=== PATIENT | male | born 2005 | race Caucasian/White ===

== ENCOUNTER 2025-06-19 15:55 | Emergency (ER) | payer SELFPAY ==
[2025-06-19] MEDS ORDERED: DIPHENHYDRAMINE 50 MG/ML VIAL ONE (16:39)
[2025-06-19] MEDS ORDERED: METHYLPREDNISOLONE 125 MG INJ ONE (16:39)
[2025-06-19] MEDS ORDERED: NA CHLORIDE 0.9% 1,000 ML ONE (16:40)
[2025-06-19] MEDS ORDERED: FAMOTIDINE 20 MG/2 ML VIAL IV ONE (16:40)
--- NOTE | 2025-06-19 17:34 | ER ---
Nurse's Notes [facility] Name: Selene Prajapati Age: 19 yrs Sex: Male : 2005 Arrival Date: 06/19/2025 Time: 15:55 Bed 14 Private MD: Diagnosis: Urticaria Presentation: 06/19 16:24 Chief complaint: Patient states: WOKE UP THIS MORNING WITH RED HIVES ON KYLEE ARMS, KYLEE dd2 LEGS, STOMACH. PT REPORTS ITCHING. Coronavirus screen: At this time, the client does not indicate any symptoms associated with coronavirus-19. Ebola Screen: No symptoms or risks identified at this time. Onset: The symptoms/episode began/occurred this morning. Anaphylaxis evaluation, no signs or symptoms of anaphylaxis were noted. Risk Assessment: Do you want to hurt yourself or someone else? Patient reports no desire to harm self or others. Onset of symptoms was June 18, 2025. 16:24 Method Of Arrival: Ambulatory dd2 16:24 Acuity: IFTIKHAR 3 dd2 16:26 Initial Sepsis Screen: Does the patient meet any 2 criteria? No. Patient's initial dd2 sepsis screen is negative. Does the patient have a suspected source of infection? No. Patient's initial sepsis screen is negative. Triage Assessment: 16:26 General: Appears in no apparent distress. uncomfortable, Behavior is calm, cooperative, dd2 appropriate for age. Pain: Complains of pain in throat. EENT: Throat is reddened Reports pain when swallowing. Derm: Rash noted that is itchy, red, raised, Reports itching. Historical: - Allergies: 16:26 Igo; dd2 - PMHx: 16:26 None; dd2 - PSHx: 16:26 None; dd2 - Immunization history:: Adult Immunizations unknown. - Infectious Disease History:: Denies. - Social history:: Smoking status: Reported history of juuling and/or vaping. Screenin:49 [facility] ED Fall Risk Assessment (Adult) History of falling in the last 3 months, km10 including since admission No falls in past 3 months (0 pts) Confusion or Disorientation No (0 pts) Intoxicated or Sedated No (0 pts) Impaired Gait No (0 pts) Mobility Assist Device Used No (0 pt) Altered Elimination No (0 pt) Score/Fall Risk Level 0 - 2 = Low Risk Oriented to surroundings, Maintained a safe environment. Abuse screen: Denies threats or abuse. Denies injuries from another. Nutritional screening: No deficits noted. Tuberculosis screening: No symptoms or risk factors identified. Assessment: 16:50 General: Appears in no apparent distress. Behavior is calm, cooperative. Pain: Denies km10 pain. Neuro: No deficits noted. Level of Consciousness is awake, alert, obeys commands, Oriented to person, place, time, situation, Appropriate for age Gait is steady. Respiratory: No deficits noted. Reports Airway is patent Respiratory effort is even, unlabored, Breath sounds are clear. Derm: Rash noted that is itchy, red, on right arm, left arm, right leg and left leg. Vital Signs: 16:26 BP 134 / 86; Pulse 114; Resp 16; Temp 98.6; Pulse Ox 99% on R/A; dd2 ED Course: 15:56 Patient arrived in ED. im 16:00 Syl Ramos PA-C is PHCP. sb4 16:00 Aleksandr Floyd DO is Attending Physician. sb4 16:00 Coty Harris FNP-C is PHCP. kb 16:26 Triage completed. dd2 16:29 Arm band placed on left wrist. dd2 16:30 Inserted saline lock: 22 gauge in right antecubital area, using aseptic technique. km10 Flushed with 10 mL NS. 16:30 No provider procedures requiring assistance completed. km10 16:31 Britney Dos Santos, RN is Primary Nurse. km10 Administered Medications: 16:46 Drug: NS 0.9% IV 1000 ml IV at 1000 ml once; to be given as a bolus over 60 minutes km10 Route: IV; Rate: 1000 ml; Site: right antecubital; 16:47 Drug: MethylPrednisoLONE IVP 125 mg IVP once Route: IVP; Site: right antecubital; km10 16:47 Drug: diphenhydrAMINE IVP 25 mg IVP once Route: IVP; Site: right antecubital; km10 16:48 Drug: Famotidine IVP 20 mg IVP once; dilute with 10 mL 0.9% NaCl; give over 2 minutes km10 Route: IVP; Site: right antecubital; Outcome: 17:33 Discharge ordered by MD. sb4 18:16 Patient left the ED. ll1 Signatures: Coty Harris, JUANA-C Johnnie Mayen RN RN ll1 Syl Ramos PA-C PA-C sb4 Bárbara Calvert DIANA RN RN dd2 Britney Dos Santos RN RN km10
--- NOTE | 2025-06-19 17:34 | EDPHYS ---
Physician Documentation [facility] Name: Selene Prajapati Age: 19 yrs Sex: Male : 2005 Arrival Date: 06/19/2025 Time: 15:55 Bed 14 Private MD: ED Physician Aleksandr Floyd HPI: 06/19 18:01 This 19 yrs old Male presents to ER via Ambulatory with complaints of Allergic Reaction.sb4 18:15 Patient states that he woke up with hives all over his body this morning. 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 Additionally, he was around kittens last night and one of them peed on him. He denies any chest tightness, shortness of breath, wheezing. States the rash is very itchy and he took "a lot of infant Benadryl "prior to coming. Historical: - Allergies: 16:26 Jakob; dd2 - PMHx: 16:26 None; dd2 - PSHx: 16:26 None; dd2 - Immunization history:: Adult Immunizations unknown. - Infectious Disease History:: Denies. - Social history:: Smoking status: Reported history of juuling and/or vaping. ROS: 18:15 Constitutional: Negative for fever, chills, and weight loss, sb4 18:18 Skin: Positive for rash, diffusely, sb4 18:18 All other systems are negative, Exam: 18:18 Constitutional: This is a well developed, well nourished patient who is awake, alert, sb4 and in no acute distress. Head/Face: Normocephalic, atraumatic. Eyes: Extra-ocular motions intact. Periorbital areas with no swelling, redness, or edema. ENT: Mucous membranes moist. Cardiovascular: Regular rate and rhythm with a normal S1 and S2. Respiratory: No increased work of breathing, no retractions or nasal flaring. Abdomen/GI: Soft, non-tender, no distension. 18:18 Skin: rash a moderate rash is noted, rash can be described as urticarial, and is diffusely located, Vital Signs: 16:26 BP 134 / 86; Pulse 114; Resp 16; Temp 98.6; Pulse Ox 99% on R/A; dd2 MDM: 16:01 Medical Screening Exam initiated sb4 18:18 Differential diagnosis: anaphylaxis, urticaria. Data reviewed: vital signs, nurses sb4 notes, and as a result, I will discharge patient. Counseling: I had a detailed discussion with the patient and/or guardian regarding the historical points, exam findings, and any diagnostic results supporting the discharge/admit diagnosis, the need for outpatient follow up, for definitive care, to return to the emergency department if symptoms worsen or persist or if there are any questions or concerns that arise at home. 06/19 16:27 Order name: IV Start; Complete Time: 16:37 sb4 Administered Medications: 16:46 Drug: NS 0.9% IV 1000 ml IV at 1000 ml once; to be given as a bolus over 60 minutes km10 Route: IV; Rate: 1000 ml; Site: right antecubital; 16:47 Drug: MethylPrednisoLONE IVP 125 mg IVP once Route: IVP; Site: right antecubital; km10 16:47 Drug: diphenhydrAMINE IVP 25 mg IVP once Route: IVP; Site: right antecubital; km10 16:48 Drug: Famotidine IVP 20 mg IVP once; dilute with 10 mL 0.9% NaCl; give over 2 minutes km10 Route: IVP; Site: right antecubital; Disposition: 19:09 I was immediately available on-site in the Emergency Department for consultation in the ms3 care of the patient. Disposition Summary: 06/19/25 17:33 Discharge Ordered Notes: Location: Home sb4 Problem: new sb4 Symptoms: have improved sb4 Condition: Stable sb4 Diagnosis - Urticaria sb4 Followup: sb4 - With: Emergency Department - When: As needed - Reason: Trouble breathing, Worsening of condition Discharge Instructions: - Discharge Summary Sheet sb4 - Allergies, Adult sb4 - Hives, [id number] sb4 Forms: - Patient Portal Instructions sb4 - Leadership Thank You Letter sb4 Prescriptions: - Prednisone 20 mg Oral Tablet - take 2 tablets ORAL route once daily for 5 days; 10 tablet; Refills: 0, Product sb4 Selection Permitted Signatures: Aleksandr Floyd DO DO ms3 Syl Ramos PA-C PA-C sb4 CASTRO BUTT RN RN dd2 Britney Dos Santos RN RN km10
[2025-06-19 21:09] VITALS: BP 134/86; TEMP 98.6; O2SAT 99
== END 2025-06-19 18:16 | disposition home or self-care (01) ==
LOC: ER 15:55
DX: L50.9 Urticaria, unspecified (principal)
CPT/HCPCS: 96374; 96375; 99284; J1200; J2919; J7030

== ENCOUNTER 2025-06-21 13:27 | Emergency (ER) | payer SELFPAY ==
[2025-06-21] MEDS ORDERED: NA CHLORIDE 0.9% 1,000 ML ONE (13:59)
[2025-06-21 14:19] LABS: Absolute Lymphocytes (CBC) 1.7 K/uL (0.7-4.9); Hematocrit 42.6 % (39.6-49.0); Hemoglobin 14.8 g/dL (13.6-17.9); MCH 30.7 pg (27.0-35.0); MCHC 34.8 g/dL (32.0-36.0); MCV 88.2 fL (80-100); MPV 11.5 fL (7.6-11.3); Nucleated RBC Absolute Count 0.0 (0-0); Nucleated Red Blood Cells % 0.1 % (0-0); RBC Red Blood Cell Count 4.83 M/uL (4.33-5.43); White Blood Count 7.90 thou/uL (4.3-10.9)
--- NOTE | 2025-06-21 14:35 | RAD REPORT ---
EXAM: Soft Tissue Neck W/Contr INDICATION: Neck pain. Neck swelling. TECHNIQUE: Helical CT examination of the neck [id number] cc Isovue-300 IV contrast. Sagittal and coronal reformations were generated. This exam was performed according to our departmental dose-optimization program, which includes automated exposure control, adjustment of the mA and/or kV according to patient size and/or use of iterative reconstruction technique. COMPARISON: None. FINDINGS: Hypertrophy of the adenoids and tonsils. The remainder of the pharynx, larynx and subglottic trachea are unremarkable Parotid, submandibular and thyroid glands appear normal. Bilateral enlarged lymph nodes submandibular region. Largest on the left 1.5 cm. No fluid within the visualized sinuses/mastoids. Mucous retention cyst left maxillary sinus. Mild eth moid sinusitis IMPRESSION: Hypertrophy adenoids and tonsils Mild neck lymphadenopathy probably reactive in nature. Follow-up neck ultrasound in 3 months recommen ded to assess stability/resolution
[2025-06-21 14:37] LABS: ALT/SGPT 27 U/L (16-61); Anion Gap 9.7 mEq/L (5.0-15.0); BUN Blood Urea Nitrogen 10 mg/dL (7-18); Glucose Level 93 mg/dL (74-106); Potassium 3.7 mEq/L (3.5-5.1)
[2025-06-21 14:38] LABS: Albumin 3.3 g/dL (3.4-5.0); Albumin/Globulin Ratio 0.9 (1.1-1.8); Alkaline Phosphatase 55 U/L (45-117); Globulin 3.8 g/dL (2.3-3.5)
[2025-06-21 14:39] LABS: AST/SGOT < 10 U/L (15-37)
[2025-06-21] MEDS ORDERED: NA CHLORIDE 0.9% 100 ML ONE (14:52)
[2025-06-21] MEDS ORDERED: CEFTRIAXONE 1000 MG/VIAL ONE (14:52)
[2025-06-21] MEDS ORDERED: FAMOTIDINE 20 MG/2 ML VIAL IV ONE (15:24)
[2025-06-21] MEDS ORDERED: DIPHENHYDRAMINE 50 MG/ML VIAL ONE (15:24)
[2025-06-21] MEDS ORDERED: AMOX/K CLAV 875 MG TAB ONE (15:24)
--- NOTE | 2025-06-21 15:24 | ER ---
Nurse's Notes [facility] Name: Selene Prajapati Age: 19 yrs Sex: Male : 2005 Arrival Date: 06/21/2025 Time: 13:27 Bed 3 Private MD: Diagnosis: Acute pharyngitis, unspecified;Other allergy-to JAKOB VAPE;Tobacco abuse counseling;Tobacco use Presentation: 06/21 13:37 Chief complaint:. Chief complaint: Patient states: STATES WOKE UP THIS AM WITH db DIFFICULTY BREATHING AND SORE THROAT. ON STEROIDS DUE TO ALLERGIC REACTION 3 DAYS AGO. STILL HAS RASH TO ARMS. NOTED SWELLING TO NECK. STATES THROAT FEELS SWOLLEN. Coronavirus screen: Client denies travel out of the [place] in the last 14 days. At this time, the client does not indicate any symptoms associated with coronavirus-19. Ebola Screen: Patient negative for fever greater than or equal to 101.5 degrees Fahrenheit, and additional compatible Ebola Virus Disease symptoms Patient denies exposure to infectious person. Patient denies travel to an Ebola-affected area in the 21 days before illness onset. No symptoms or risks identified at this time. Initial Sepsis Screen: Does the patient meet any 2 criteria? No. Patient's initial sepsis screen is negative. Does the patient have a suspected source of infection? No. Patient's initial sepsis screen is negative. Risk Assessment: Do you want to hurt yourself or someone else? Patient reports no desire to harm self or others. Onset of symptoms was June 21, 2025. 13:37 Method Of Arrival: Ambulatory db 13:37 Acuity: IFTIKHAR 3 db Triage Assessment: 13:40 General: Appears in no apparent distress. uncomfortable, Behavior is calm, cooperative. db Pain: Complains of pain in neck. EENT: Throat. Neuro: Level of Consciousness is awake, alert, obeys commands, Oriented to person, place, time, situation. Historical: - Allergies: 13:40 Jakob; db - PMHx: 13:40 Asthma; db - PSHx: 13:40 None; db - Immunization history:: Adult Immunizations unknown. - Infectious Disease History:: Denies. - Social history:: Smoking status: Reported history of juuling and/or vaping. Screenin:13 [facility] ED Fall Risk Assessment (Adult) History of falling in the last 3 months, hb including since admission No falls in past 3 months (0 pts) Confusion or Disorientation No (0 pts) Intoxicated or Sedated No (0 pts) Impaired Gait No (0 pts) Mobility Assist Device Used No (0 pt) Altered Elimination No (0 pt) Score/Fall Risk Level 0 - 2 = Low Risk Oriented to surroundings, Maintained a safe environment, Educated pt \T\ family on fall prevention, incl call for assistance when getting out of bed. Abuse screen: Denies threats or abuse. Denies injuries from another. Nutritional screening: No deficits noted. Tuberculosis screening: No symptoms or risk factors identified. Assessment: 14:13 General: Appears in no apparent distress. uncomfortable, Behavior is calm, cooperative. hb Pain: Pain. Neuro: Level of Consciousness is awake, alert, obeys commands, Oriented to person, place, time, situation. Cardiovascular: Patient's skin is warm and dry. Respiratory: Airway is patent Respiratory effort is even, unlabored, Respiratory pattern is regular, symmetrical. GI: No signs and/or symptoms were reported involving the gastrointestinal system. : No signs and/or symptoms were reported regarding the genitourinary system. EENT: Reports pain when swallowing. Derm: Skin is pink, warm \T\ dry. Musculoskeletal: No signs and/or symptoms reported regarding the musculoskeletal system. 15:35 Respiratory: Breath sounds are clear. kb4 Vital Signs: 13:37 BP 141 / 90; Pulse 102; Resp 20; Temp 98.3(O); Pulse Ox 97% ; Weight 97.52 kg; Height 6 db ft. 0 in. ; 15:35 BP 141 / 70; Pulse 84; Resp 16; Pulse Ox 99% on R/A; kb4 13:37 Body Mass Index 29.16 (97.52 kg, 182.88 cm) - Percentile 92.4 % db ED Course: 13:34 Patient arrived in ED. cj3 13:38 Robbi Soto MD is Attending Physician. juan francisco 13:40 Triage completed. db 13:41 Arm band placed on Patient placed in an exam room. db 13:54 Blossom Phillips, RN is Primary Nurse. kb4 14:12 No provider procedures requiring assistance completed. Initial lab(s) drawn, by me, hb sent to lab. Strep swab sent to lab. Inserted saline lock: 20 gauge in right antecubital area, using aseptic technique. Blood collected. Flushed with 10 mL NS. 14:13 Patient has correct armband on for positive identification. Bed in low position. Call hb light in reach. Provided Education on: .. 14:13 Group A Streptococcus Rapid Sent. hb 14:13 CMP Sent. hb 14:13 CBC with Diff Sent. hb 14:20 CT Soft Tissue Neck W/contr In Process Unspecified. EDMS 15:22 Malu Hernandez MD is Referral Physician. juan francisco 15:36 IV discontinued, intact, bleeding controlled, No redness/swelling at site. Pressure kb4 dressing applied. Administered Medications: 14:13 Drug: NS 0.9% IV 1000 ml IV at 1000 ml once; to be given as a bolus over 60 minutes hb Route: IV; Rate: 1000 ml; Site: right antecubital; 14:59 Drug: Rocephin IV 1 grams IV at per protocol once; Given slow IV push per pharmacy kb4 instructions Route: IV; Rate: per protocol; Site: right antecubital; 14:59 Drug: Decadron - Dexamethasone IVP 10 mg IVP once Route: IVP; Site: right antecubital; kb4 15:34 Follow up: Response: Medication administered at discharge. kb4 15:25 Drug: Famotidine IVP 20 mg IVP once; dilute with 10 mL 0.9% NaCl; give over 2 minutes aa5 Route: IVP; Site: right antecubital; 15:34 Follow up: Response: Medication administered at discharge. kb4 15:25 Drug: diphenhydrAMINE IVP 50 mg IVP once Route: IVP; Site: right antecubital; aa5 15:34 Follow up: Response: No adverse reaction; Medication administered at discharge. kb4 15:31 Drug: Amoxicillin-Clavulanate PO 875 mg PO once Route: PO; aa5 15:34 Follow up: Response: Medication administered at discharge. kb4 Medication: 14:13 VIS not applicable for this client. hb Outcome: 15:23 Discharge ordered by . juan francisco 15:36 Discharged to home ambulatory, kb4 15:36 Condition: good 15:36 Discharge instructions given to patient, Instructed on discharge instructions, follow up and referral plans. medication usage, Demonstrated understanding of instructions, follow-up care, medications, Prescriptions given X 4, 15:36 Patient left the ED. kb4 Signatures: Dispatcher [employer] EDMS Robbi Soto MD MD cha Calderon, Audri, RN RN aa5 Janet Noyola RN RN Marjorie Lagos RN RN db Blossom Phillips RN RN kb4 Gauri Deluna cj3 Corrections: (The following items were deleted from the chart) 13:41 13:40 PMHx: None; kanu bobby
--- NOTE | 2025-06-21 15:24 | EDPHYS ---
Physician Documentation [facility] Name: Selene Prajapati Age: 19 yrs Sex: Male : 2005 Arrival Date: 06/21/2025 Time: 13:27 Bed 3 Private MD: ED Physician Robbi Soto HPI: 06/21 15:17 This 19 yrs old Male presents to ER via Ambulatory with complaints of Sore juan francisco Throat, Breathing Difficulty, Swollen Throat. 15:17 The patient presents with sore throat. The patient describes throat pain as burning, juan francisco constant, raw. Onset: The symptoms/episode began/occurred 2 day(s) ago. Severity of symptoms: At their worst the symptoms were mild, in the emergency department the symptoms have improved, mildly. Modifying factors: The symptoms are alleviated by fluids, the symptoms are aggravated by swallowing. Associated signs and symptoms: The patient has no apparent associated signs or symptoms. The patient has not experienced similar symptoms in the past. Historical: - Allergies: 13:40 [place]; db - PMHx: 13:40 Asthma; db - PSHx: 13:40 None; db - Immunization history:: Adult Immunizations unknown. - Infectious Disease History:: Denies. - Social history:: Smoking status: Reported history of juuling and/or vaping. ROS: 15:18 Constitutional: Negative for fever, chills, and weight loss, Eyes: Negative for injury, juan francisco pain, redness, and discharge, Neck: Negative for injury, pain, and swelling, Cardiovascular: Negative for chest pain, palpitations, and edema, Respiratory: Negative for shortness of breath, cough, wheezing, and pleuritic chest pain, Abdomen/GI: Negative for abdominal pain, nausea, vomiting, diarrhea, and constipation, Back: Negative for injury and pain, : Negative for injury, bleeding, discharge, and swelling, MS/Extremity: Negative for injury and deformity, Skin: Negative for injury, rash, and discoloration, Neuro: Negative for headache, weakness, numbness, tingling, and seizure, Psych: Negative for depression, anxiety, suicide ideation, homicidal ideation, and hallucinations, Allergy/Immunology: Negative for hives, rash, and allergies, Endocrine: Negative for neck swelling, polydipsia, polyuria, polyphagia, and marked weight changes, Hematologic/Lymphatic: Negative for swollen nodes, abnormal bleeding, and unusual bruising, 15:18 ENT: Positive for difficulty swallowing, sinus congestion, sore throat, 15:18 Respiratory: Positive for cough, shortness of breath, at rest. Exam: 15:18 Constitutional: This is a well developed, well nourished patient who is awake, alert, juan francisco and in no acute distress. Head/Face: Normocephalic, atraumatic. Eyes: Pupils equal round and reactive to light, extra-ocular motions intact. Lids and lashes normal. Conjunctiva and sclera are non-icteric and not injected. Cornea within normal limits. Periorbital areas with no swelling, redness, or edema. Neck: Trachea midline, no thyromegaly or masses palpated, and no cervical lymphadenopathy. Supple, full range of motion without nuchal rigidity, or vertebral point tenderness. No Meningismus. Chest/axilla: Normal chest wall appearance and motion. Nontender with no deformity. No lesions are appreciated. Cardiovascular: Regular rate and rhythm with a normal S1 and S2. No gallops, murmurs, or rubs. Normal PMI, no JVD. No pulse deficits. Respiratory: Lungs have equal breath sounds bilaterally, clear to auscultation and percussion. No rales, rhonchi or wheezes noted. No increased work of breathing, no retractions or nasal flaring. Abdomen/GI: Soft, non-tender, with normal bowel sounds. No distension or tympany. No guarding or rebound. No evidence of tenderness throughout. Back: No spinal tenderness. No costovertebral tenderness. Full range of motion. Skin: Warm, dry with normal turgor. Normal color with no rashes, no lesions, and no evidence of cellulitis. MS/ Extremity: Pulses equal, no cyanosis. Neurovascular intact. Full, normal range of motion., bilateral aka Neuro: Awake and alert, GCS 15, oriented to person, place, time, and situation. Cranial nerves II-XII grossly intact. Motor strength 5/5 in all extremities. Sensory grossly intact. Cerebellar exam normal. Normal gait. Psych: Awake, alert, with orientation to person, place and time. Behavior, mood, and affect are within normal limits. 15:18 ENT: TM's: are normal, no acute changes, Examination of the other ear shows no obvious abnormality, Mouth: is normal, no abscess, no drooling, no injury, no laceration, no lesion(s), (-) tongue elevation (-) trismus no ulcerations, no gum abnomalities, no lip abnormalities, no mucosal abnormalities, no tongue abnormalities, Posterior pharynx: Airway: normal, no evidence of obstruction, Tonsils: enlarged on the right, enlarged on the left, bilaterally enlarged, with erythema, Uvula: normal, erythema, swelling, that is mild, erythema, that is mild, exudate, is not appreciated, peritonsillar mass, is not appreciated, pooling of secretions, is not appreciated, Vital Signs: 13:37 BP 141 / 90; Pulse 102; Resp 20; Temp 98.3(O); Pulse Ox 97% ; Weight 97.52 kg; Height 6 db ft. 0 in. ; 15:35 BP 141 / 70; Pulse 84; Resp 16; Pulse Ox 99% on R/A; kb4 13:37 Body Mass Index 29.16 (97.52 kg, 182.88 cm) - Percentile 92.4 % db MDM: 13:38 Medical Screening Exam initiated juan francisco 15:20 Differential diagnosis: echovirus infection, gastroesophageal reflux disease, group A juan francisco strep tonsillitis, influenza, laryngitis, peritonsillar abscess chlamydia pharyngitis, neisseria gonorrheoeae pharangitis, Mycoplasma Pharyngitis pharyngitis, radiation smoke inhalation, tonsillitis, tracheobronchitis, upper respiratory infection, uvulitis, viral syndrome. Data reviewed: vital signs, nurses notes, lab test result(s), radiologic studies, CT scan. Consideration of Admission/Observation Escalation of care including admission/observation considered. I considered the following discharge prescriptions or medication management in the emergency department Medications were administered in the Emergency Department. See MAR. Independent interpretation of the following test(s) in the Emergency Department CT Scan: My interpretation is ct soft tissue . Test considered but Not performed: Ultrasound no neck usg. Historians other than the Patient: Spouse/Significant Other: well informed. Care significantly affected by the following chronic conditions: asthma. Counseling: I had a detailed discussion with the patient and/or guardian regarding the historical points, exam findings, and any diagnostic results supporting the discharge/admit diagnosis, lab results, the need for outpatient follow up, for definitive care, an ENT specialist, a family practitioner. 06/21 13:39 Order name: CBC with Diff; Complete Time: 15:16 juan francisco 06/21 13:39 Order name: CMP; Complete Time: 15:16 juan francisco 06/21 13:39 Order name: Group A Streptococcus Rapid; Complete Time: 15:16 juan francisco 06/21 14:29 Order name: Throat Culture EDMS 06/21 14:00 Order name: CT Soft Tissue Neck W/contr; Complete Time: 15:16 jaun francisco Administered Medications: 14:13 Drug: NS 0.9% IV 1000 ml IV at 1000 ml once; to be given as a bolus over 60 minutes hb Route: IV; Rate: 1000 ml; Site: right antecubital; 14:59 Drug: Rocephin IV 1 grams IV at per protocol once; Given slow IV push per pharmacy kb4 instructions Route: IV; Rate: per protocol; Site: right antecubital; 14:59 Drug: Decadron - Dexamethasone IVP 10 mg IVP once Route: IVP; Site: right antecubital; kb4 15:34 Follow up: Response: Medication administered at discharge. kb4 15:25 Drug: Famotidine IVP 20 mg IVP once; dilute with 10 mL 0.9% NaCl; give over 2 minutes aa5 Route: IVP; Site: right antecubital; 15:34 Follow up: Response: Medication administered at discharge. kb4 15:25 Drug: diphenhydrAMINE IVP 50 mg IVP once Route: IVP; Site: right antecubital; aa5 15:34 Follow up: Response: No adverse reaction; Medication administered at discharge. kb4 15:31 Drug: Amoxicillin-Clavulanate PO 875 mg PO once Route: PO; aa5 15:34 Follow up: Response: Medication administered at discharge. kb4 Disposition Summary: 06/21/25 15:23 Discharge Ordered Notes: Location: Home juan francisco Problem: new juan francisco Symptoms: have improved juan francisco Condition: Stable juan francisco Diagnosis - Acute pharyngitis, unspecified juan francisco - Other allergy - to ERICH VAPE juan francisco - Tobacco abuse counseling juan francisco - Tobacco use juan francisco Followup: juan francisco - With: Private Physician - When: 2 - 3 days - Reason: Recheck today's complaints, Continuance of care, Re-evaluation by your physician Followup: juan francisco - With: Malu Hernandez MD - When: 2 - 3 days - Reason: Recheck today's complaints, Re-evaluation by your physician Discharge Instructions: - Discharge Summary Sheet juan francisco - Pharyngitis juan francisco - Steps to Quit Smoking juan francisco - Health Risks of Smoking juan francisco - Sore Throat juan francisco - Pharyngitis, [id number] juan francisco - Sore Throat, [id number] juan francisco - Electronic Cigarette Information [facility] - Managing the Challenge of Quitting Smoking [facility] Forms: - Medication Reconciliation Form [facility] - Antibiotic Education juan francisco - Prescription Opioid Use juan francisco - Patient Portal Instructions [facility] - Leadership Thank You Letter [facility] Prescriptions: - Augmentin 875-125 mg Oral tablet - take 1 tablet ORAL route every 12 hours for 7 days; 14 tablet; Refills: 0, [facility] Product Selection Permitted - Benadryl 25 mg Oral capsule - take 2 capsule ORAL route every 6 hours As needed; 36 tablet; Refills: 0, [facility] Product Selection Permitted - Pepcid 20 mg Oral tablet - take 1 tablet ORAL route every 12 hours for 21 days; 42 tablet; Refills: 0, [facility] Product Selection Permitted - Dexamethasone 4mg Oral tablet - take 1 tablet ORAL route daily for 4 days; 4 tablet; Refills: 0, Product [facility] Selection Permitted Signatures: Dispatcher [employer] EDMS Robbi Soto MD MD cha Calderon, Audri, RN RN aa5 Janet Noyola RN RN Marjorie Lagos, RN RN db Blossom Phillips RN RN kb4 Corrections: (The following items were deleted from the chart) 13:39 13:39 CBC+H.LAB.BRZ ordered. EDMS EDMS 13:39 13:39 COMPREHENSIVE METABOLIC PANEL+C.LAB.BRZ ordered. EDMS EDMS 13:39 13:39 Group A Streptococcus Rapid Sc+I.LAB.BRZ ordered. EDMS EDMS 13:41 13:40 PMHx: None; db db
[2025-06-21 16:32] VITALS: TEMP 98.3
[2025-06-21 16:38] VITALS: BP 141/70; O2SAT 99
== END 2025-06-21 15:36 | disposition home or self-care (01) ==
LOC: ER 13:27
DX: J02.9 Acute pharyngitis, unspecified (principal); Z91.048 Other nonmedicinal substance allergy status; Z72.0 Tobacco use; Z71.6 Tobacco abuse counseling
CPT/HCPCS: 36415; 70491; 80053; 85025; 87070; 96374; 96375; 99284; J0696; J1100; J1200; J7030; Q9967